=== PATIENT | male | born 1990 | race African-American/Black ===

== ENCOUNTER → 2023-12-14 | Emergency (ER) | payer MEDICAID, OTHER ==
[~2023-12-14] VITALS: Ht 188 cm; Wt 73.0 kg
[2023-12-14 04:10] VITALS: O2SAT 100
[2023-12-14 07:01] VITALS: BP 106/69; PULSE 64; RESP 16; TEMP 98.3
== END ==
LOC: ER 04:06
DX: R11.2 Nausea with vomiting, unspecified (principal); F10.10 Alcohol abuse, uncomplicated; Y90.9 Presence of alcohol in blood, level not specified
CPT/HCPCS: 99283